=== PATIENT | male | born 1965 | race African-American/Black ===

== ENCOUNTER 2022-09-22 21:50 | Emergency (ER) | payer SELFPAY ==
[~2022-09-22] VITALS: Ht 177.8 cm; Wt 91.0 kg
[2022-09-22] MEDS ORDERED: ONDANSETRON HCL 4MG/2ML INJ IV STA (22:09)
[2022-09-22 22:12] VITALS: BP 96/48
[2022-09-22] MEDS ORDERED: SODIUM CHLORIDE 0.9% 1,000 ML IV ONE (22:15)
== END 2022-09-22 23:56 | disposition left against medical advice (07) ==
LOC: ER 21:50
DX: R00.0 Tachycardia, unspecified (principal); I10 Essential (primary) hypertension
CPT/HCPCS: 99283; J7030